=== PATIENT | female | born 1935 | race Caucasian/White ===

== ENCOUNTER 2016-12-06 08:51 | Day surgery (SDC) | payer OTHER ==
[~2016-12-06] VITALS: Ht 171.4 cm; Wt 79.1 kg
[2016-12-06] MEDS ORDERED: POTA-163 PO (09:21)
[2016-12-06] MEDS ORDERED: ATEN50TA PO (09:21)
[2016-12-06] MEDS ORDERED: TRIA37.5 PO (09:21)
[2016-12-06] MEDS ORDERED: ALEN1TAB48 PO (09:22)
[2016-12-06 09:30] VITALS: BP 138/49; PULSE 57; RESP 20; TEMP 98.1; O2SAT 97
[2016-12-06] MEDS ORDERED: SODIUM CHLOR 0.9% 1000 ML INJ 1,000 ML IV SCH (10:00)
[2016-12-06] MEDS ORDERED: ceFAZolin 2 GM PREMIX 50 ML IV SCH (10:00)
[2016-12-06 10:14] LABS: APTT (PATIENT) 27.1 SEC (24.3-30.1); PROTHROMBIN TIME - PATIENT 11.4 SEC (9.8-11.6)
[2016-12-06] MEDS ORDERED: KETAMINE HCL 500 MG/5 ML VIAL ONE (10:59)
[2016-12-06] MEDS ORDERED: SODIUM CHLORID 0.9% 500 ML IV PRN (11:00)
[2016-12-06] MEDS ORDERED: LACTATED RINGER'S 1000 ML IV PRN (11:00)
[2016-12-06 11:24] LABS: BICARBONATE 27.2 MEQ/L (21.0-32.0); POTASSIUM 3.8 MEQ/L (3.5-5.1)
[2016-12-06 11:45] LABS: AUTOMATED NEUTROPHIL # 1.4 TH/MM3 (1.8-7.7); BASOPHIL % 1.2 % (0.0-2.0); EOSINOPHIL # 0.2 TH/MM3 (0-0.4); EOSINOPHIL % 6.1 % (0.0-4.0); HEMATOCRIT 36.8 % (35.0-46.0); LYMPH % 45.8 % (9.0-44.0); LYMPHOCYTE # 1.6 TH/MM3 (1.0-4.8); MEAN CELL VOLUME 89.7 FL (80.0-100.0); MEAN CORPUSCULAR HEMOGLOBIN 29.7 PG (27.0-34.0); MEAN CORPUSCULAR HGB CONC 33.1 % (32.0-36.0); MONO % 7.6 % (0.0-8.0); NEUT % 39.3 % (16.0-70.0); RED BLOOD COUNT 4.11 MIL/MM3 (4.00-5.30); RED CELL DISTRIBUTION WIDTH 13.2 % (11.6-17.2); WHITE BLOOD COUNT 3.6 TH/MM3 (4.0-11.0)
[2016-12-06 12:10] LABS: HEMO FLAGS AUTO DIFF
[2016-12-06 12:11] LABS: PLATELET COUNT 123 TH/MM3 (150-450); SCAN/DIFF AUTO DIFF CONFIRMED
--- NOTE | 2016-12-06 13:19 | EKG ---
Date Performed: 12/06/2016 Time Performed: 10:48:31 PTAGE: 81 years EKG: SINUS BRADYCARDIA WITH FIRST DEGREE AV BLOCK ST/T-WAVE ABNORMALITY, CONSIDER LATERAL ISCHEM IA ABNORMAL ECG NO PREVIOUS TRACING DOCTOR: Kendall Novak Interpretating Date/Time 12/06/2016 13:17:39
[2016-12-06] MEDS ORDERED: BUPIVACAINE HCL PF 0.75% 30 ML VIAL ONE (14:45)
--- NOTE | 2016-12-06 15:40 | PD.RAD ---
Post Procedure Progress Note Pre Procedure Diagnosis: (1) Vertebral compression fracture Post Procedure Diagnosis: (1) Vertebral compression fracture Procedure Date: Dec 06, 2016 Supervising Radiologist: Dandy Caal JR Proceduralist/Assist: Randy Gonzalez, RT(R), Vasyl Stanley, RT(R), Jo Cardenas RT(R)() Anesthesia: MAC Plan of Activity Patient to Unit: ROPU Patient Condition: Good See PACS Report for procedural detail/treatment Spinal Procedure Kyphoplasty T11, T12 Findings: Successful kyphoplasty of T11 and T12. Plan F/U in 2-3 weeks or sooner if any problems Jr Ten.,Dandy Castellon MD Dec 06, 2016 15:40
[2016-12-06] MEDS ORDERED: MIDAZOLAM HCL 2 MG/2 ML VIAL ONE (15:47)
[2016-12-06 15:54] VITALS: BP 147/86; PULSE 68; RESP 18; TEMP 97.4; O2SAT 97
[2016-12-06 16:24] VITALS: BP 149/84; PULSE 58; RESP 18; O2SAT 98
[2016-12-06 16:54] VITALS: BP 146/91; PULSE 63; RESP 18; O2SAT 98
--- NOTE | 2016-12-07 09:22 | RADRPT ---
EXAM DATE/TIME: 12/06/2016 14:25 [facility] COMPARISON: No previous studies available for comparison. INDICATIONS : Patient is in need of a kyphoplasty for treatment of T11/T12 compression fractures. Patient is status post fall several weeks ago. Has failed medical management. MEDICAL HISTORY : History of osteopenia, chronic neutropenia, diverticulosis, HTN, mitral valve prolapse, CKD. SURGICAL HISTORY : History of colonoscopy, cataract removal, hysterectomy. ENCOUNTER: Initial ACUITY: 3 weeks PAIN SCORE: 6/10 LOCATION: back FLUORO TIME: 11.6 minutes IMAGE SERIES: 1 LEVEL: T11 DEVICE: 1. 4 cc AVAMax bone cement Anesthesia and pain control was provided by the Anesthesia department. PROCEDURE : 1. Fluoroscopically-guided kyphoplasty. 2. Conscious sedation with continuous EKG and oximetry monitoring. The risks, benefits and alternatives to the procedure were explained and verbal and written consent w as obtained. The site was prepped in sterile fashion. Full sterile technique was used, including ca p, mask, sterile gloves and gown and a large sterile sheet. Hand hygiene and 2% chlorhexidine and/or betadine/alcohol prep was utilized per protocol for cutaneous antisepsis. The skin and subcutaneous tissues were infiltrated with local anesthetic solution. With fluoroscopic guidance via the T11 vertebral body was accessed. Kyphoplasty was performed with c avity creation as above. Curved needle was utilized. The prescribed cement volume was placed. Post procedure images demonstrate cement confined to the vertebral body. Anesthesia was supplied by the Anesthesiology Department. EKG and oximetry remained stable throughout the procedure. The patient tolerated the procedure well and there were no complications. The patie nt was sent to post anesthesia recovery in stable condition. CONCLUSION: Uncomplicated T11 kyphoplasty as above. Dandy Caal Jr., MD on December 07, 2016 at 9:16 Board Certified Radiologist. This report was verified electronically.
--- NOTE | 2016-12-07 10:12 | RADRPT ---
EXAM DATE/TIME: 12/06/2016 14:25 [facility] COMPARISON: No previous studies available for comparison. INDICATIONS : Patient is in need of a kyphoplasty for treatment of T11/T12 compression fractures. MEDICAL HISTORY : History of osteopenia, chronic neutropenia, diverticulosis, HTN, mitral valve prolapse, CKD. SURGICAL HISTORY : History of colonoscopy, cataract removal, hysterectomy. ENCOUNTER: Initial ACUITY: 3 weeks PAIN SCORE: 6/10 LOCATION: back FLUORO TIME: 11.6 minutes IMAGE SERIES: 1 LEVEL: T12 DEVICE: 1. 5 cc AVAMax bone cement Anesthesia and pain control was provided by the Anesthesia department. PROCEDURE : 1. Fluoroscopically-guided kyphoplasty. 2. Anesthesia supplied by the anesthesiology department. The risks, benefits and alternatives to the procedure were explained and verbal and written consent w as obtained. The site was prepped in sterile fashion. Full sterile technique was used, including ca p, mask, sterile gloves and gown and a large sterile sheet. Hand hygiene and 2% chlorhexidine and/or betadine/alcohol prep was utilized per protocol for cutaneous antisepsis. The skin and subcutaneous tissues were infiltrated with local anesthetic solution. With fluoroscopic guidance via the T12 vertebral body was accessed via a left unilateral transpedicul ar approach. Kyphoplasty was performed with cavity creation utilizing a curved needle. The prescrib ed cement volume was placed. Post procedure images demonstrate cement confined to the vertebral body . Anesthesia was supplied by the anesthesiology Department. The patient tolerated the procedure well an d there were no complications. The patient was sent to post anesthesia recovery in stable condition. CONCLUSION: Uncomplicated T12 kyphoplasty as above. Dandy Caal Jr., MD on December 07, 2016 at 10:09 Board Certified Radiologist. This report was verified electronically.
== END 2016-12-06 18:09 | disposition home or self-care (01) ==
LOC: HROP 08:51 → HRIP 09:05 → HROP 18:09
PROVIDERS: ATTEND Internal Medicine
DX: S22.080A Wedge compression fracture of T11-T12 vertebra, initial encounter for closed fracture (principal); I34.1 Nonrheumatic mitral (valve) prolapse; E55.9 Vitamin D deficiency, unspecified; E87.6 Hypokalemia; M54.5 Low back pain; M85.80 Other specified disorders of bone density and structure, unspecified site; I12.9 Hypertensive chronic kidney disease with stage 1 through stage 4 chronic kidney disease, or unspecified chronic kidney disease; N18.2 Chronic kidney disease, stage 2 (mild); D70.9 Neutropenia, unspecified; W19.XXXA Unspecified fall, initial encounter
CPT/HCPCS: 22513; 22515; 80048; 85025; 85610; 85730; 93005; J2250; J7030

== ENCOUNTER 2016-12-27 13:32 | Day surgery (SDC) | payer OTHER ==
[~2016-12-27 13:32] MED LIST: ALEN1TAB48 PO; ATEN50TA PO; POTA-163 PO; TRIA37.5 PO
[2016-12-27 13:55] VITALS: BP 136/83; PULSE 61; RESP 18; TEMP 98; O2SAT 97
--- NOTE | 2016-12-27 14:57 | RADRPT ---
EXAM DATE/TIME: 12/27/2016 00:00 [facility] COMPARISON : INDICATIONS : F/U Kyphoplasty OBJECTIVE: Temperature: 98 Heart Rate: 61 Blood Pressure: 136/83 Respiratory: 20 Oximetry: 97 PNEUMONIA VACCINE: HISTORY OF PRESENT ILLNESS: Patient is post 2 level kyphoplasty. She states or lower thoracic pain has completely resolved. The p atient states she is doing quite well post procedure. She does complain of a new pain in the left lower back and the buttock region. PAST MEDICAL HISTORY : 1. osteopenia 2. neutropenia 3. Hypertension. PAST SURGICAL HISTORY : 1. Kypho T11-T12 2. Hysterectomy. 3. cataracts PHYSICAL EXAMINATION: The kyphoplasty site is completely healed. The patient has a new pain which is directly above the left sacroiliac joint on palpation. ASSESSMENT: The patient has done well post-kyphoplasty. PLAN: The patient was advised of new pain is likely related to the sacroiliac joint. It does persist she wa s advised to call us back and will schedule for for steroid administration into the sacroiliac joint. TIME SPENT: 10 minutes. Edvin Oliva MD on December 27, 2016 at 14:52 Board Certified Radiologist. This report was verified electronically.
== END 2016-12-27 14:10 | disposition home or self-care (01) ==
LOC: HROP 13:32 → HRIP 13:34 → HROP 14:10
PROVIDERS: ATTEND Radiology Body Imaging
DX: Z09 Encounter for follow-up examination after completed treatment for conditions other than malignant neoplasm (principal)

== ENCOUNTER → 2017-05-13 | Day surgery (SDC) | payer OTHER ==
--- NOTE | 2017-05-13 18:13 | RADRPT ---
EXAM DATE/TIME: 05/13/2017 00:00 [facility] COMPARISON : Outside MRI of the lumbar spine and plain films of lumbar spine. INDICATIONS : consult. follow up kypho. any further recommendations OBJECTIVE: Temperature: Heart Rate: 56 Blood Pressure: 131/84 Respiratory: 18 Oximetry: 97 HISTORY OF PRESENT ILLNESS: The patient was seen in followup. She had 2 level kyphoplasty performed in November of 2016 due to acut e onset back pain. The patient states she had complete resolution of her back pain following the proc edure. She denies any pain currently. She reports some weakness involving her lower extremities. She states that she has not been doing any significant physical activity as she did prior to the kyphopla sty. She reports some point tenderness to the SI joint that only occurs with gating in and out of a c hair. Otherwise there is no discomfort at all. Denies any radiculopathy. PAST MEDICAL HISTORY : 1. mitral valve prolapse PAST SURGICAL HISTORY : 1. 2 level Kyphoplasty. 2. cataract ALLERGIES: 1. aspirin 2. tomatoes PHYSICAL EXAMINATION: General: Awake and alert. She is in no acute distress. She is sitting comfortably in a chair. She gets up and out of a chair without difficulty. She ambulates without difficulty. No gait disturbance. ASSESSMENT: Patient doing well following 2 level kyphoplasty. She denies any pain. PLAN: Increased physical activity. Call if any issues arise. TIME SPENT: <<15 minutes> Dandy Caal Jr., MD on May 13, 2017 at 18:06 Board Certified Radiologist. This report was verified electronically.
== END | disposition home or self-care (01) ==
LOC: HROP 14:14
PROVIDERS: ATTEND Internal Medicine
DX: M48.56XA Collapsed vertebra, not elsewhere classified, lumbar region, initial encounter for fracture (principal)